=== PATIENT | female | born 1950 ===

== ENCOUNTER 2023-06-14 16:11 | Inpatient (IN) | payer OTHER ==
[~2023-06-14] VITALS: Ht 162.6 cm; Wt 70.8 kg
[2023-06-15] MEDS ORDERED: GLUMETZA500 MG PO (14:17)
[2023-06-15] MEDS ORDERED: COZAAR50 MG PO (14:18)
[2023-06-20] MEDS ORDERED: JANUMET XR 50-1 EACH (10:43)
[2023-06-20] MEDS ORDERED: PANTOPRAZOLE SO40 MG (10:43)
== END 2023-06-23 11:16 | disposition home or self-care (01) | DRG 330 ==
LOC: SURG 06-20 07:00 → O/R 06-20 07:01 → SURG 06-20 07:01 → SURH 06-21 18:09
PROVIDERS: ADMIT Colon & Rectal Surgery; ATTEND Colon & Rectal Surgery
PROC: 0DTN4ZZ Resection of Sigmoid Colon, Percutaneous Endoscopic Approach (ICD-10-PCS; 2023-06-20)
PROC: 0DJD8ZZ Inspection of Lower Intestinal Tract, Via Natural or Artificial Opening Endoscopic (ICD-10-PCS; 2023-06-20)
PROC: 0DBP4ZZ Excision of Rectum, Percutaneous Endoscopic Approach (ICD-10-PCS; principal; 2023-06-20 07:00)
DX: K57.32 Diverticulitis of large intestine without perforation or abscess without bleeding (principal); K92.1 Melena; N73.6 Female pelvic peritoneal adhesions (postinfective); N99.4 Postprocedural pelvic peritoneal adhesions